=== PATIENT | male | born 1965 | race Caucasian/White ===

== ENCOUNTER 2017-01-28 09:25 | Emergency (ER) | payer OTHER ==
[~2017-01-28 09:25] MED LIST: CLARITIN-D1 TAB.SR .
[2017-01-28] MEDS ORDERED: NO HOME MEDICATION XX (09:36)
== END 2017-01-28 11:28 ==
LOC: EDMED 09:25
DX: S87.81XA Crushing injury of right lower leg, initial encounter (principal); J45.909 Unspecified asthma, uncomplicated; F17.200 Nicotine dependence, unspecified, uncomplicated; Z88.8 Allergy status to other drugs, medicaments and biological substances; W23.0XXA Caught, crushed, jammed, or pinched between moving objects, initial encounter